=== PATIENT | female | born 1995 | race Caucasian/White ===

== ENCOUNTER 2020-03-20 19:52 | Emergency (ER) | payer OTHER ==
[2020-03-20] MEDS ORDERED: Acetaminophen 500 MG TAB ONE (19:58)
[2020-03-21 14:23] LABS: SARS-CoV-2 MS2 Positive; SARS-CoV-2 N Gene Positive; SARS-CoV-2 S Gene Positive; SARS-CoV-2 by NAA DETECTED (NotDetected); SARS-CoV-2 orf1ab Positive
== END 2020-03-20 20:21 | disposition home or self-care (01) ==
LOC: ERS 19:52
DX: U07.1 COVID-19 (principal)
CPT/HCPCS: 87635; 99283; U0003